=== PATIENT | male | born 1995 | race Caucasian/White ===

== ENCOUNTER 2021-06-13 02:01 | Emergency (ER) | payer BC ==
[~2021-06-13] VITALS: Ht 182.9 cm; Wt 68.2 kg
[2021-06-13 02:16] VITALS: BP 148/75
[2021-06-13] MEDS ORDERED: PLEASE ENTER ALLERGIES MC SCH (04:00)
[2021-06-13] MEDS ORDERED: ZOLPIDEM 10MG TABLET PO PRN (04:00)
[2021-06-13] MEDS ORDERED: ZOLPIDEM 5MG TABLET ONE (04:02)
== END 2021-06-13 04:10 | disposition home or self-care (01) ==
LOC: ED 04:04
DX: F51.01 Primary insomnia (principal)
CPT/HCPCS: 99283